=== PATIENT | male | born 1945 | race African-American/Black ===

== ENCOUNTER 2020-03-26 08:02 | Outpatient (CLI) | payer MEDICARE, SELFPAY | END 2020-03-26 08:03 | disposition home or self-care (01) | LOC: ANHAUDIO 08:05 | PROVIDERS: PCP Family Medicine | DX: R42 Dizziness and giddiness (principal); H90.3 Sensorineural hearing loss, bilateral | CPT/HCPCS: 92537; 92540; 92546; 92557; 92567 ==